=== PATIENT | male | born 1965 | race Caucasian/White ===

== ENCOUNTER → 2024-11-28 12:44 | Outpatient (CLI) | payer OTHER, SELFPAY | PROVIDERS: Referring Provider Chiropractor; Visit Provider Chiropractor | DX: J61 Pneumoconiosis due to asbestos and other mineral fibers (principal); Z87.891 Personal history of nicotine dependence; Z77.110 Contact with and (suspected) exposure to air pollution | CPT/HCPCS: 94060 ==